=== PATIENT | female | born 1955 | race Caucasian/White ===

== ENCOUNTER → 2016-07-26 | Outpatient (CLI) | payer BC ==
[2016-07-26 09:31] LABS: HEMOGLOBIN A1C 5.93 % (4.2-6.0); MEAN BLOOD GLUCOSE (CALC) 111.469 mg/dL
[2016-07-26 09:32] LABS: ASPARTATE AMINO TRANSFERASE 30 IU/L (8-39); BILIRUBIN,TOTAL 0.6 mg/dL (0.3-1.2); BLOOD UREA NITROGEN 10 mg/dL (7-22); CALCIUM 9.4 mg/dL (8.7-10.7); CHLORIDE 103 meq/L (98-112); CREATININE 0.8 mg/dL (0.50-1.20); EST GLOMERULAR FILTRATION > 60 (>60 ml/min/1.73m(2)); GLUCOSE 108 mg/dL (78-110); HDL CHOLESTEROL 44 mg/dL (40-150); POTASSIUM 4.1 meq/L (3.8-5.2); SODIUM 143 meq/L (135-145); TRIGLYCERIDES 113 mg/dL (44-200)
== END ==
LOC: LAB 08:51
PROVIDERS: ATTEND Nurse Practitioner Family
DX: E78.5 Hyperlipidemia, unspecified (principal); R03.0 Elevated blood-pressure reading, without diagnosis of hypertension; R73.02 Impaired glucose tolerance (oral); F32.9 Major depressive disorder, single episode, unspecified
CPT/HCPCS: 36415; 80048; 82247; 82465; 82550; 82977; 83036; 83718; 84075; 84450; 84460; 84478

== ENCOUNTER → 2016-08-27 | Outpatient (CLI) | payer BC | LOC: SLEEP LAB 19:50 | PROVIDERS: ATTEND Nurse Practitioner Family | DX: G47.33 Obstructive sleep apnea (adult) (pediatric) (principal); G47.34 Idiopathic sleep related nonobstructive alveolar hypoventilation | CPT/HCPCS: 95811 ==

== ENCOUNTER → 2017-01-09 | Outpatient (CLI) | payer BC ==
[2017-01-09 09:41] LABS: BASOPHILS # (AUTO) 0.14 10*3/UL; BASOPHILS % (AUTO) 1.8 % (0-1); EOSINOPHILS % (AUTO) 2.6 % (0-8); HEMATOCRIT 43.5 % (37.0-47.0); HEMOGLOBIN 14.8 g/dL (12.0-16.0); LYMPHOCYTES # (AUTO) 2.15 10*3/uL; MEAN CORPUSCULAR HEMOGLOBIN 29.1 PG (27-31); MEAN CORPUSCULAR VOLUME 85.6 FL (81-99); MEAN PLATELET VOLUME 8.2 FL (7.4-12.2); MONOCYTES # (AUTO) 0.64 10*3/UL (0.3-0.8); MONOCYTES % (AUTO) 8.4 % (5-15); NEUTROPHILS # (AUTO) 4.45 10*3/UL; NEUTROPHILS % (AUTO) 58.6 % (50-80); RED BLOOD COUNT 5.08 10^6/uL (4.20-5.40)
[2017-01-09 09:52] LABS: PLATELET MORPHOLOGY COMMENT NORMAL MORPHOLOGY (NORM); RBC MORPHOLOGY COMMENT NORMAL MORPHOLOGY (NORM); WBC MORPHOLOGY COMMENT NORMAL MORPHOLOGY (NORM)
[2017-01-09 09:53] LABS: BLOOD UREA NITROGEN 10 mg/dL (7-22); C-REACTIVE PROTEIN 0.9 mg/dL (0.0-0.9); CALCIUM 9.7 mg/dL (8.7-10.7); EST GLOMERULAR FILTRATION > 60 (>60 ml/min/1.73m(2)); LIPASE 121 IU/L (23-300); SERUM ALBUMIN 4.3 g/dL (3.5-4.8)
[2017-01-09 10:31] LABS: CHOL/HDL RATIO 4.2 RATIO (0-4.0); LDL CHOLESTEROL,CALCULATED 96.4 mg/dL
[2017-01-09 10:52] LABS: HEMOGLOBIN A1C 6.54 % (4.2-6.0)
== END ==
LOC: LAB 08:55
PROVIDERS: ATTEND Physician Assistant
DX: R19.7 Diarrhea, unspecified (principal); I10 Essential (primary) hypertension; E78.5 Hyperlipidemia, unspecified; R73.01 Impaired fasting glucose
CPT/HCPCS: 36415; 80053; 82247; 82272; 82465; 82550; 82710; 82977; 83036; 83630; 83690; 83718; 84075; 84439; 84443; 84450; 84460; 84478; 85025; 86140; 87046; 87177; 87205; 87209; 87328; 87329; 87338; 87449; 87493

== ENCOUNTER → 2017-01-29 | Outpatient (CLI) | payer BC ==
[2017-01-29 14:21] LABS: CREATININE, URINE 134.9 MG/DL (15-500)
== END ==
LOC: MOB LAB 11:06
PROVIDERS: ATTEND Nurse Practitioner Family
DX: E11.9 Type 2 diabetes mellitus without complications (principal)
CPT/HCPCS: 82043

== ENCOUNTER 2017-02-13 08:48 | Day surgery (SDC) | payer BC ==
[~2017-02-13 08:48] MED LIST: LIDOCAINE W/ SODIUM BICARB 0.5 ML SYR ONE; Lactated Ringers 1,000 ML PRIMARY IV ONE; MIDAZOLAM 5 MG/1 ML ONE
--- NOTE | 2017-02-13 10:11 | GEN.OPNOTE ---
Colonoscopy Procedure Note Surgery Date: 02/13/17 Preoperative Diagnosis: Family history of colon cancer Postoperative Diagnosis: Screening colonoscopy for family history colon cancer. Normal large intestine Procedure: Colonoscopy Surgeon: Arturo Pugh MD Anesthesia Provider: Aparna Shah CRNA Anesthesia Type: MAC Indications: Patient is a family history of her mother having colon cancer Findings: Prep : Excellent Cecum : Scope was advanced all way to cecum. Ileocecal valve clearly identified. Patient normal. Cecum Ascending : Ascending colon had no evidence of polyps tumors or cancers Transverse : Transverse colon had no polyps tumors or cancers Sigmoid : Descending and sigmoid colon appeared be normal Rectum : No rectal pathology identified Digital Rectal Exam : A lubricated flexible colonoscope was inserted and passed to the blind end of the cecum. Additional Details: Colonoscopy every 5 years
[2017-02-13 10:52] VITALS: RESP 16
[2017-02-13 10:54] VITALS: TEMP 97.4
== END 2017-02-13 10:28 | disposition home or self-care (01) ==
LOC: SDSC 08:48
PROVIDERS: ATTEND Surgery
DX: Z80.0 Family history of malignant neoplasm of digestive organs (principal); Z12.11 Encounter for screening for malignant neoplasm of colon
CPT/HCPCS: 45378; J2250; J2704; J7120

== ENCOUNTER → 2017-02-26 | Outpatient (CLI) | payer BC ==
--- NOTE | 2017-02-26 21:31 | DI ---
BILATERAL FOOT ULTRASOUND, 02/26/2017 1:00 PM: Clinical History: Palpable lump on the medial aspect of the plantar surface of the right foot. Bilate ral plantar fasciitis. Previous Exam: None at this facility. Longitudinal and transverse scans are performed with the high resolution MSK "hockey-stick" probe ove r the lesion of the right foot near the arch. Color Doppler ultrasound was also performed. Transverse and longitudinal scans are obtained through the area of the plantar fascia of each foot using the hi gh-resolution linear ray probe. Right Foot: Scans over the palpable mass revealed a slightly hypoechoic "saucer-shaped" lesion measuring 8 x 10 x 4 mm. The periphery of the lesion is hypoechoic in the central portion has the same sonographic text ure as the surrounding fatty tissue. The lesion readily compresses with even gentle pressure with the probe. Color Doppler ultrasound shows vascularity around the periphery of the lesion but there is no obvious vascularity within the lesion. The appearance is consistent with a small lipoma. Scans on the plantar surface near the calcaneus demonstrate the plantar fascia although it is difficu lt to visualize. The maximum thickness is approximately 5 mm and that portion of the fascia is slight ly echogenic. This be consistent with mild plantar fasciitis although the patient did not exhibit any pain with palpation of this area while scanning. Left Foot: Scans over the left plantar fascia are even more difficult to identify. The thickness of the left sarabjit ntar fascia near the calcaneus measures about 6-7 mm with a hypoechoic texture. This patient is compl etely asymptomatic during palpation of this area with the probe. Readin. The palpable mass on the plantar surface near the arch of the right foot is consistent with an 8 x 10 x 4 mm lipoma. 2. Both feet show slight thickening of the plantar fascia slightly more prominent on the left side t [place] the right. However, the patient is completely asymptomatic with palpation of this area with the p robe while scanning. Therefore, it is doubtful that the sonographic findings of slight thickening of the plantar fascia would be of any clinical significance.
== END ==
LOC: US 11:38
PROVIDERS: ATTEND Podiatrist Foot & Ankle Surgery
DX: M79.672 Pain in left foot (principal); M79.671 Pain in right foot; R22.41 Localized swelling, mass and lump, right lower limb; M72.2 Plantar fascial fibromatosis
CPT/HCPCS: 76882